=== PATIENT | male | born 1990 | race Caucasian/White ===

== ENCOUNTER 2018-01-23 15:01 | Emergency (ER) | payer SELFPAY ==
[~2018-01-23] VITALS: Ht 185.4 cm; Wt 111.1 kg
[2018-01-23] MEDS ORDERED: SODIUM CHLORIDE 0.9% 1000ML 1,000 ML ONE (17:00)
[2018-01-23] MEDS ORDERED: ONDANSETRON HCL INJ 2 MG/ML VIAL IV ONE (17:00)
[2018-01-23] MEDS ORDERED: KETOROLAC TROMETHAMINE 30 MG/ML VIAL IV ONE (18:00)
[2018-01-23] MEDS ORDERED: DICYCLOMINE HCL 20 MG TAB PO ONE (18:00)
[2018-01-23] MEDS ORDERED: PROMETHAZINE HC25 M1 PO (18:04)
[2018-01-23] MEDS ORDERED: ZOFRAN ODT4 MG SL (18:04)
== END 2018-01-23 18:30 | disposition home or self-care (01) ==
LOC: FSED 15:01
DX: R11.2 Nausea with vomiting, unspecified (principal); R19.7 Diarrhea, unspecified; A08.11 Acute gastroenteropathy due to Norwalk agent
CPT/HCPCS: 80053; 85025; 93005; 96360; 96374; 96375; 99283; J1885; J2405; J7030